=== PATIENT | female | born 1945 | race Caucasian/White ===

== ENCOUNTER → 2022-01-28 | Outpatient (CLI) | payer MEDICARE ==
[~2022-01-28] MED LIST: ATOR40TA71 PO; CARB1TAB35 PO; ENTA200T5 PO; ESCI20TA38 PO; FLUC100T12 PO; LEVO75CA5 PO; NIFE-39 PO; ONDA4TAB10 PO; PANT40TA55 PO; PROP20TA7 PO; ROPI4TAB6 PO; TRIH2TAB3 PO
== END | disposition home or self-care (01) ==
LOC: RAH 14:19
PROVIDERS: ATTEND Nurse Practitioner Family
DX: Z12.31 Encounter for screening mammogram for malignant neoplasm of breast (principal)
CPT/HCPCS: 77067

== ENCOUNTER → 2024-03-01 | Outpatient (CLI) | payer OTHER ==
[~2024-03-01] MED LIST changes: +ONDA-243 PO; -ONDA4TAB10 PO; +ROPI4TAB41 PO; -ROPI4TAB6 PO
--- NOTE | 2024-03-01 15:37 | HMCIMG ---
CT CHEST HIGH RESOLUTION (WO) HISTORY: Shortness of breath COMPARISON: 08/05/2021 TECHNIQUE: Multiple sequential axial images of the chest were obtained from the thoracic inlet through upper abdomen. Patient was not given contrast through intravenous route. FINDINGS: Mild reticular nodular pulmonary infiltrates are seen in the left lower lung. No pleural effusion or pericardial effusion is seen. Calcified granuloma are seen. There is no evidence of pneumothorax. There are normal size mediastinal and hilar lymph nodes. The heart is not enlarged. Degenerative changes of the thoracolumbar spine are present. There is no evidence of adrenal nodule. Calcified granuloma are seen in liver and spleen. IMPRESSION: 1. Mild left lower lung reticular nodular pulmonary infiltrates. CT was performed with one or more following dose reduction techniques: automated exposure control, adjustment of the mA and kv according to patient's size, or use of a iterative reconstruction technique.
== END | disposition home or self-care (01) ==
LOC: RAH 13:36
PROVIDERS: ATTEND Internal Medicine
DX: R91.1 Solitary pulmonary nodule (principal); J84.10 Pulmonary fibrosis, unspecified; M47.815 Spondylosis without myelopathy or radiculopathy, thoracolumbar region; R06.02 Shortness of breath; J98.4 Other disorders of lung
CPT/HCPCS: 71250